=== PATIENT | female | born 1990 | race Caucasian/White ===

== ENCOUNTER 2016-10-23 15:17 | Emergency (ER) | payer SELFPAY ==
[~2016-10-23] VITALS: Ht 152.4 cm; Wt 50.0 kg
[~2016-10-23 15:17] MED LIST: ATROPINE SULFATE 1 MG/10 ML SYRINGE IV ONE; CALCIUM CHLORIDE 10% SOLN 1 GRAM/10 ML SYR IV ONE; CEPH500C3 PO; CLIN150 PO; DOPamine INJ PREMIX 500 ML IV ONE; EPINEPHrine HCL (1:10,000) 1 MG/10 ML SYRINGE IV ONE; SODIUM BICARBONATE 8.4% INJ 50 MEQ/50 ML SYR IV ONE; SULF-154 PO; ZITHTAB PO
[2016-10-23 15:24] VITALS: PULSE 145; RESP 46; O2SAT 95
--- NOTE | 2016-10-23 15:26 | PD ---
Physical Exam Time Seen by Provider: 15:24 Narrative 26 y/o female here with generalized weakness, lethargy, right ear pain for 9 days. Sent her by her pcp. Vital signs reviewed. Seen at triage desk. Being immediately bedded. Data Data Last Documented VS Vital Signs Date Time Temp Pulse Resp B/P Pulse Ox O2 Delivery O2 Flow Rate FiO2 10/23/16 15:24 145 46 95 MDM Medical Record Reviewed: Yes Supervised Visit with ROQUE: No Chris Ross October 23, 2016 15:25 Chris Ross October 23, 2016 15:25
[2016-10-23 15:30] VITALS: BP 135/75; PULSE 140; RESP 30; O2SAT 94
[2016-10-23] MEDS ORDERED: SODIUM CHLOR 0.9% 1000 ML INJ 1,000 ML IV ONE (15:41)
[2016-10-23] MEDS ORDERED: SODIUM CHLOR 0.9% 1000 ML INJ 800 ML IV ONE (15:41)
[2016-10-23] MEDS ORDERED: ONDANSETRON HCL 4 MG/2 ML VIAL IV ONE (15:45)
--- NOTE | 2016-10-23 15:57 | PD ---
HPI Chief Complaint: Altered Mental Status Time Seen by Provider: 15:32 Travel History International Travel<30 days: No Contact w/Intl Traveler<30days: No Traveled to known affect area: No History of Present Illness HPI The patient is a 26-year-old female who presents to the emergency department via private vehicle for 9 days of lethargy and right ear pain. The patient has a history of IVDA and Suboxone treatment. The patient states she ran out of her Suboxone 2 days ago, subsequently injected heroin yesterday. The patient was seen by her primary physician/bank secrecy act officer, Dr. Shepherd, who referred her to the emergency department for possible sepsis. The patient does complain of generalized lethargy, right ear pain, diffuse body pain, chest pain , and thirst. The patient denies any outright shortness of breath, nausea, vomiting, or abdominal pain. The patient does have a history of IVDA, denies any history of epidural abscess in the past, does have a history of cellulitis secondary to injections. The patient denies any fever, but has had intermittent chills. Symptoms are moderate, possibly exacerbated by opiate use and underlying infection, and there are no current alleviating factors. PFSH Past Medical History ADHD: No Arthritis: No Asthma: No Autoimmune Disease: No Anxiety: Yes Depression: Yes Heart Rhythm Problems: No Cancer: No Cardiovascular Problems: No High Cholesterol: No Chemotherapy: No Chest Pain: No Congestive Heart Failure: No COPD: No Cerebrovascular Accident: No Diabetes: No Diminished Hearing: No Endocrine: No GERD: No Genitourinary: No Hepatitis: Yes (HEPATITIS C) Hiatal Hernia: No Immune Disorder: No Kidney Stones: No Musculoskeletal: No Neurologic: No Psychiatric: No Reproductive: No Respiratory: No Migraines: No Radiation Therapy: No Renal Failure: No Seizures: No Sickle Cell Disease: No Sleep Apnea: No Thyroid Disease: No Ulcer: No ?: Unknown Past Surgical History Abdominal Surgery: No AICD: No Appendectomy: No Arteriovenous Shunt: No Cardiac Surgery: No Cholecystectomy: No Ear Surgery: No Endocrine Surgery: No Eye Surgery: No Genitourinary Surgery: No Gynecologic Surgery: No Insulin Pump: No Joint Replacement: No Oral Surgery: No Pacemaker: No Thoracic Surgery: Yes (BIOPSY LEFT BREAST) Other Surgery: Yes Social History Alcohol Use: Yes (VERY RARE) Tobacco Use: Yes (1 ppd) Substance Use: Yes (HEROIN, CRACK) Allergies-Medications (Allergen,Severity, Reaction): Coded Allergies: Acetaminophen (Verified Allergy, Severe, Anaphylaxis, 10/23/16) Reported Meds & Prescriptions Reported Meds & Active Scripts Active Zithromax Z-Josué (Azithromycin) 250 Mg Dspk 250 Mg PO DIRECTED 500 MG (2 tabs) day 1, then 1 tab days 2-5. Cleocin (Clindamycin HCl) 150 Mg Cap 2 Tab PO QID Septra Ds (Trimethoprim/Sulfamethoxazole) Tab 1 Tab PO BID Keflex (Cephalexin Monohydrate) 500 Mg Cap 500 Mg PO QID Septra Ds (Trimethoprim/Sulfamethoxazole) Tab 1 Tab PO BID Review of Systems Except as stated in HPI: all other systems reviewed are Neg General / Constitutional: Positive: Chills, No: Fever HENT: Positive: Lightheadedness Cardiovascular: Positive: Chest Pain or Discomfort Respiratory: No: Shortness of Breath Gastrointestinal: No: Nausea, Vomiting, Abdominal Pain Genitourinary: No: Dysuria Musculoskeletal: Positive: Myalgias, Arthralgias, Weakness Neurologic: Positive: Weakness Psychiatric: Positive: Substance Abuse (IVDA, last use was yesterday, heroin) Physical Exam Narrative GENERAL: Awake, somewhat lethargic 26-year-old female appears older than her stated age with mild tachypnea. SKIN: Focused skin assessment warm/dry. Patient has multiple old appearing skin lesions on the back and lower legs. HEAD: Atraumatic. Normocephalic. EYES: Pupils equal and round. No scleral icterus. No injection or drainage. ENT: No nasal bleeding or discharge. Slightly dry mucous membranes. The right auricle is slightly edematous, unsure if this fluctuance is secondary to abscess or auricular hematoma. NECK: Trachea midline. No JVD. CARDIOVASCULAR: Regular, tachycardic with a heart rate in the 130s. RESPIRATORY: No accessory muscle use. Clear to auscultation. Breath sounds equal bilaterally. GASTROINTESTINAL: Abdomen soft, non-tender, nondistended. No rebound tenderness. Back: No CVA tenderness. MUSCULOSKELETAL: No obvious deformities. No clubbing. No cyanosis. No edema. NEUROLOGICAL: Awake, somewhat lethargic. Normal speech. Nonfocal. PSYCHIATRIC: Slightly agitated. Data Data Last Documented VS Vital Signs Date Time Temp Pulse Resp B/P Pulse Ox O2 Delivery O2 Flow Rate FiO2 10/23/16 16:00 16 97 Room Air 10/23/16 15:24 145 Orders Electrocardiogram (10/23/16 15:41) Complete Blood Count With Diff (10/23/16 15:41) Comprehensive Metabolic Panel (10/23/16 15:41) Prothrombin Time / Inr (Pt) (10/23/16 15:41) Act Partial Throm Time (Ptt) (10/23/16 15:41) Lactic Acid Sepsis Protocol (10/23/16 15:41) Magnesium (Mg) (10/23/16 15:41) Ckmb (Isoenzyme) Profile (10/23/16 15:41) Troponin I (10/23/16 15:41) Urinalysis - C+S If Indicated (10/23/16 15:41) Blood Culture (10/23/16 15:41) Wound Culture And Gram Stain (10/23/16 15:41) Chest, Single Ap (10/23/16 15:41) Blood Gas Venous (Vbg) (10/23/16 15:41) Blood Glucose (10/23/16 15:41) Ecg Monitoring (10/23/16 15:41) Iv Access Insert/Monitor (10/23/16 15:41) Oximetry (10/23/16 15:41) Oxygen Administration (10/23/16 15:41) Ondansetron Inj (Zofran Inj) (10/23/16 15:45) Sodium Chlor 0.9% 1000 Ml Inj (Ns 1000 M (10/23/16 15:41) Sodium Chlor 0.9% 1000 Ml Inj (Ns 1000 M (10/23/16 15:41) Ed Urine Pregnancytest Poc (10/23/16 15:41) Buprenorphine-Naloxone 8-2 Mg (Buprenorp (10/23/16 16:15) Etomidate Inj (Amidate Inj) (10/23/16 16:57) Succinylcholine Inj (Quelicin Inj) (10/23/16 16:58) Epinephrine (1:10,000) Inj (Epinephrine (10/23/16 17:21) Phenyleph/Ns 1000 Mcg/10ml Syr (Neosynep (10/23/16 17:22) Labs Laboratory Tests Test 10/23/16 10/23/16 15:57 16:00 Blood Gas Puncture Site I.V. Blood Gas Patient Temperature 98.6 Venous Blood pH 7.13 Venous Blood Partial Pressure 48 mmHg CO2 Venous Blood Partial Pressure 21 mmHg O2 Venous Blood HCO3 15 mmol/L Venous Blood Oxygen Saturation 20 % Venous Blood Oxygen Content 4.4 Vol % Venous Blood Base Excess -12.5 mmol/L Oxygen Delivery Device ROOM AIR Blood Gas Inspired Oxygen 21 % White Blood Count 34.1 TH/MM3 Red Blood Count 5.71 MIL/MM3 Hemoglobin 14.9 GM/DL Hematocrit 46.5 % Mean Corpuscular Volume 81.5 FL Mean Corpuscular Hemoglobin 26.1 PG Mean Corpuscular Hemoglobin 32.1 % Concent Red Cell Distribution Width 18.2 % Platelet Count 289 TH/MM3 Mean Platelet Volume 8.5 FL Neutrophils (%) (Auto) 90.2 % Lymphocytes (%) (Auto) 4.0 % Monocytes (%) (Auto) 5.7 % Eosinophils (%) (Auto) 0.0 % Basophils (%) (Auto) 0.1 % Neutrophils # (Auto) 30.8 TH/MM3 Lymphocytes # (Auto) 1.4 TH/MM3 Monocytes # (Auto) 1.9 TH/MM3 Eosinophils # (Auto) 0.0 TH/MM3 Basophils # (Auto) 0.0 TH/MM3 CBC Comment AUTO DIFF Differential Total Cells 100 Counted Neutrophils % (Manual) 75 % Band Neutrophils % 12 % Lymphocytes % 7 % Monocytes % 4 % Neutrophils # (Manual) 30.3 TH/MM3 Metamyelocytes 2 % Differential Comment FINAL DIFF MANUAL Platelet Estimate NORMAL Platelet Morphology Comment NORMAL Prothrombin Time 15.3 SEC Prothromb Time International 1.4 RATIO Ratio Activated Partial 35.2 SEC Thromboplast Time Sodium Level 130 MEQ/L Potassium Level 4.1 MEQ/L Chloride Level 90 MEQ/L Carbon Dioxide Level 15.3 MEQ/L Anion Gap 25 MEQ/L Blood Urea Nitrogen 20 MG/DL Creatinine 2.15 MG/DL Estimat Glomerular Filtration 27 ML/MIN Rate Random Glucose 286 MG/DL Lactic Acid Level 12.8 mmol/L Calcium Level 9.2 MG/DL Magnesium Level 2.7 MG/DL Total Bilirubin 2.8 MG/DL Aspartate Amino Transf 50 U/L (AST/SGOT) Alanine Aminotransferase 47 U/L (ALT/SGPT) Alkaline Phosphatase 108 U/L Total Creatine Kinase 34 U/L Troponin I 0.45 NG/ML Total Protein 7.7 GM/DL Albumin 3.0 GM/DL MDM Medical Decision Making Medical Screen Exam Complete: Yes Emergency Medical Condition: Yes Medical Record Reviewed: Yes Interpretation(s) EKG reveals sinus tachycardia with a rate of 129. Short MD interval of 103 ms. Early repolarization. Laboratory Tests Test 10/23/16 10/23/16 15:57 16:00 Blood Gas Puncture Site I.V. Blood Gas Patient Temperature 98.6 Venous Blood pH 7.13 Venous Blood Partial Pressure 48 mmHg CO2 Venous Blood Partial Pressure 21 mmHg O2 Venous Blood HCO3 15 mmol/L Venous Blood Oxygen Saturation 20 % Venous Blood Oxygen Content 4.4 Vol % Venous Blood Base Excess -12.5 mmol/L Oxygen Delivery Device ROOM AIR Blood Gas Inspired Oxygen 21 % White Blood Count 34.1 TH/MM3 Red Blood Count 5.71 MIL/MM3 Hemoglobin 14.9 GM/DL Hematocrit 46.5 % Mean Corpuscular Volume 81.5 FL Mean Corpuscular Hemoglobin 26.1 PG Mean Corpuscular Hemoglobin 32.1 % Concent Red Cell Distribution Width 18.2 % Platelet Count 289 TH/MM3 Mean Platelet Volume 8.5 FL Neutrophils (%) (Auto) 90.2 % Lymphocytes (%) (Auto) 4.0 % Monocytes (%) (Auto) 5.7 % Eosinophils (%) (Auto) 0.0 % Basophils (%) (Auto) 0.1 % Neutrophils # (Auto) 30.8 TH/MM3 Lymphocytes # (Auto) 1.4 TH/MM3 Monocytes # (Auto) 1.9 TH/MM3 Eosinophils # (Auto) 0.0 TH/MM3 Basophils # (Auto) 0.0 TH/MM3 CBC Comment AUTO DIFF Differential Total Cells 100 Counted Neutrophils % (Manual) 75 % Band Neutrophils % 12 % Lymphocytes % 7 % Monocytes % 4 % Neutrophils # (Manual) 30.3 TH/MM3 Metamyelocytes 2 % Differential Comment FINAL DIFF MANUAL Platelet Estimate NORMAL Platelet Morphology Comment NORMAL Prothrombin Time 15.3 SEC Prothromb Time International 1.4 RATIO Ratio Activated Partial 35.2 SEC Thromboplast Time Sodium Level 130 MEQ/L Potassium Level 4.1 MEQ/L Chloride Level 90 MEQ/L Carbon Dioxide Level 15.3 MEQ/L Anion Gap 25 MEQ/L Blood Urea Nitrogen 20 MG/DL Creatinine 2.15 MG/DL Estimat Glomerular Filtration 27 ML/MIN Rate Random Glucose 286 MG/DL Lactic Acid Level 12.8 mmol/L Calcium Level 9.2 MG/DL Magnesium Level 2.7 MG/DL Total Bilirubin 2.8 MG/DL Aspartate Amino Transf 50 U/L (AST/SGOT) Alanine Aminotransferase 47 U/L (ALT/SGPT) Alkaline Phosphatase 108 U/L Total Creatine Kinase 34 U/L Troponin I 0.45 NG/ML Total Protein 7.7 GM/DL Albumin 3.0 GM/DL Last Impressions Chest X-Ray 10/23/16 1541 Signed Impressions: Service Date/Time: Sunday, October 23, 2016 15:54 - CONCLUSION: 1. Prominent mediastinum. Adenopathy cannot be excluded. 2. Lungs are clear. Senthil Lazo MD Differential Diagnosis Differential diagnosis includes opiate withdrawal, polysubstance abuse, sepsis, abscess, septic emboli, epidural abscess, pneumonia, pyelonephritis, likely slight abnormality, dehydration. Narrative Course IV was established, labs are drawn and sent, and the patient was placed on cardiac telemetry monitoring and continuous pulse oximetry monitoring. EKG was ordered and interpreted. Lactic acid and blood cultures were sent to lab. The patient was administered IV fluids. Needle I and D of the right ear was performed, there was only bloody return, consistent with a car hematoma, does not appear to be an abscess. The patient was able to answer questions, her respiratory rate slowed into the 20s, heart rate came down into the 120s, and there was no evidence of hypoxia on pulse oximetry monitoring. The patient then complained of mild abdominal pain, CT pulmonary angiogram was ordered to evaluate for possible septic emboli this chest x-ray revealed questionable mediastinal changes and CT the abdomen and pelvis was ordered. The patient received 2 L of IV fluids, her heart rate came down 119, when the patient suddenly yelled out to nursing staff and then went unresponsive according to nursing staff. The patient had no pulse at that time with agonal respirations. The patient had ACLS protocol followed immediately, chest compressions were started and the patient was intubated with etomidate and succinylcholine. The patient received multiple doses of epinephrine, one dose of atropine for PEA bradycardia, and one dose of calcium chloride. The patient also received 1 dose of bicarbonate. The patient was placed on a dopamine drip and an A-line was placed. Multiple cardiac ultrasounds were performed which revealed no cardiac activity, trace pericardial effusion. The patient had ACLS protocol followed for approximately 35 minutes and then time of was pronounced at 1728. A call was placed to the patient's physician, Dr. Shepherd, who evaluated the patient in the emergency department after was announced. I also had a discussion with the family at bedside. I answered all questions that the family had and advised him that the patient would go to the manager medical. Critical Care Narrative Aggregate critical care time was 40 minutes. Time to perform other separately billable procedures was not included in the critical care time. My time did not include minutes spent treating any other patients simultaneously or on activities that did not directly contribute to the patient's treatment. The services I provided to this patient were to treat and/or prevent clinically significant deterioration that could result in: Anoxia, hypoxia, aspiration, arrhythmia, . I provided critical care services requiring my management, as noted below: Chart data review, documentation time, medication orders and management, vital sign assessments/reviewing monitor data, ordering and reviewing lab tests, ordering and interpreting/reviewing x-rays and diagnostic studies, care of the patient and discussion of the patient with the admitting physicians. Procedures Procedure Narrative INTUBATION: The patient was put in optimal position for the procedure. Rapid sequence intubation was initiated by me using 20 milligrams of etomidate IV and 100 milligrams of succinylcholine IV. The patient was intubated with a 8.0 cuffed endotracheal tube. Tube placement was confirmed by visualization of the tube and balloon passing through the cords, capnometry and subsequent chest x- ray. Breath sounds were equal and well aerated bilaterally postintubation. No breath sounds over stomach. Patient tolerated procedure well. I placed a left femoral arterial line under ultrasound guidance with a linear probe. There was good blood return from the arterial line, no obvious complications. Sepsis Criteria SIRS Criteria (2 or more): Heart rate over 90, RR > 20 or PaCO2 < 32, WBC > 76820, < 4000 or > 10% bands Diagnosis Primary Impression: Severe sepsis Additional Impression: Cardiopulmonary arrest Disposition: 20 SENT TO [facility] Condition: Dean Blake MD October 23, 2016 15:57
[2016-10-23 16:00] VITALS: BP 115/63; PULSE 136; RESP 25; O2SAT 94
[2016-10-23 16:08] LABS: BLOOD GAS VENOUS BASE EXCESS -12.5 mmol/L (-2-2); BLOOD GAS VENOUS HCO3 15 mmol/L (22-26); BLOOD GAS VENOUS O2 CONTENT 4.4 Vol % (9.0-17.0); BLOOD GAS VENOUS O2 HGB SAT 20 % (70-76); BLOOD GAS VENOUS PCO2 48 mmHg (44-48); BLOOD GAS VENOUS PO2 21 mmHg (35-40); BLOOD GAS VENOUS pH 7.13 (7.360-7.400); CRITICAL VALUE YES; DRAW SITE I.V.; FIO2 21 %; OXYGEN DEVICE ROOM AIR; STAT YES; TEMP CORR TO 98.6
--- NOTE | 2016-10-23 16:10 | RADRPT ---
EXAM DATE/TIME: 10/23/2016 15:54 [facility] COMPARISON: CHEST PA & LAT, May 22, 2016, 10:26. INDICATIONS : Shortness of breath and fever. MEDICAL HISTORY : None. SURGICAL HISTORY : None. ENCOUNTER: Initial ACUITY: 1 day PAIN SCORE: 0/10 LOCATION: Bilateral chest FINDINGS: A single view of the chest demonstrates the lungs to be symmetrically aerated without evidence of mas s, infiltrate or effusion. Mediastinum is prominent predominantly in the right perihilar region. Oss eous structures are intact. CONCLUSION: 1. Prominent mediastinum. Adenopathy cannot be excluded. 2. Lungs are clear. Senthil Lazo MD on October 23, 2016 at 16:06 Board Certified Radiologist. This report was verified electronically.
[2016-10-23] MEDS ORDERED: BUPRENORPHINE/NALOXONE 8 MG/2 MG SUBLINGUAL TAB SL ONE (16:15)
[2016-10-23] MEDS ORDERED: BUPRENORPHINE HCL 8 MG SUBLINGUAL TAB SL ONE (16:15)
[2016-10-23 16:30] VITALS: PULSE 124; RESP 25; O2SAT 94
[2016-10-23 16:34] LABS: AUTOMATED NEUTROPHIL # 30.8 TH/MM3 (1.8-7.7); BASOPHIL % 0.1 % (0.0-2.0); HEMATOCRIT 46.5 % (35.0-46.0); LYMPHOCYTE # 1.4 TH/MM3 (1.0-4.8); MEAN CELL VOLUME 81.5 FL (80.0-100.0); MEAN CORPUSCULAR HEMOGLOBIN 26.1 PG (27.0-34.0); MEAN CORPUSCULAR HGB CONC 32.1 % (32.0-36.0); MONO % 5.7 % (0.0-8.0); NEUT % 90.2 % (16.0-70.0); PLATELET COUNT 289 TH/MM3 (150-450); RED BLOOD COUNT 5.71 MIL/MM3 (4.00-5.30); RED CELL DISTRIBUTION WIDTH 18.2 % (11.6-17.2); WHITE BLOOD COUNT 34.1 TH/MM3 (4.0-11.0)
[2016-10-23 16:41] LABS: HEMO FLAGS AUTO DIFF
[2016-10-23 16:47] LABS: ANION GAP 25 MEQ/L (5-15); AST (GOT) 50 U/L (15-37); BICARBONATE 15.3 MEQ/L (21.0-32.0); BLOOD UREA NITROGEN 20 MG/DL (7-18); CHLORIDE 90 MEQ/L (98-107); GLOMERULAR FILTRATION RATE 27 ML/MIN (>89); MAGNESIUM 2.7 MG/DL (1.5-2.5); POTASSIUM 4.1 MEQ/L (3.5-5.1); SODIUM (NA) 130 MEQ/L (136-145)
[2016-10-23 16:49] LABS: APTT (PATIENT) 35.2 SEC (24.3-30.1); INTERNATIONAL NORMALIZED RATIO 1.4 RATIO; PROTHROMBIN TIME - PATIENT 15.3 SEC (9.8-11.6)
[2016-10-23 16:52] LABS: ALKALINE PHOSPHATASE 108 U/L (45-117); ALT (GPT) 47 U/L (10-53); TOTAL BILIRUBIN ADULT 2.8 MG/DL (0.2-1.0)
[2016-10-23 16:57] LABS: CREATINE KINASE 34 U/L (26-192)
[2016-10-23] MEDS ORDERED: ETOMIDATE 20 MG/10 ML VIAL ONE (16:57)
[2016-10-23] MEDS ORDERED: SUCCINYLCHOLINE CHLORIDE 200 MG/10 ML VIAL ONE (16:58)
[2016-10-23 17:13] LABS: BANDS 12 % (0-6); METAMYELOCYTES 2 % (0-1); NEUTROPHIL # MANUAL DIFF 30.3 TH/MM3 (1.8-7.7); POLYS (SEG NEUTROPHILS) 75 % (16-70); WBC DIFF SAMPLE 100
[2016-10-23 17:15] LABS: PLATELET ESTIMATE SMEAR NORMAL (NORMAL); PLATELET MORPHOLOGY NORMAL (NORMAL); SCAN/DIFF FINAL DIFF MANUAL
[2016-10-23] MEDS ORDERED: EPINEPHrine HCL (1:10,000) 1 MG/10 ML SYRINGE ONE (17:21)
[2016-10-23] MEDS ORDERED: PHENYLEPH/NS 1000 MCG/10 ML SYR ONE (17:22)
[2016-10-23 18:11] LABS: LACTIC ACID GHOST NOT REPORTABLE
--- NOTE | 2016-10-24 11:00 | EKG ---
Date Performed: 10/23/2016 Time Performed: 16:08:38 PTAGE: 26 years EKG: SINUS TACHYCARDIA WITH SHORT [place] INTERVAL EARLY REPOLARIZATION ABNORMAL RHYTHM ECG PREVIOUS TRACING : 03/14/2012 19.52 DOCTOR: Bjorn Cortes Interpretating Date/Time 10/24/2016 10:59:15
== END 2016-10-23 21:30 | disposition expired ==
LOC: NEPE 15:17
DX: A41.9 Sepsis, unspecified organism (principal); I46.9 Cardiac arrest, cause unspecified; R65.20 Severe sepsis without septic shock; H61.121 Hematoma of pinna, right ear
CPT/HCPCS: 10060; 31500; 71010; 80053; 82550; 82805; 83605; 83735; 84484; 84703; 85007; 85027; 85610; 85730; 87040; 92950; 93005; 96374; 99291; J0171; J0330; J0461; J1265; J2370; J2405; J7030